=== PATIENT | female | born 1960 | race Caucasian/White ===

== ENCOUNTER 2021-08-27 23:42 | Observation (INO) | payer OTHER ==
[2021-08-28] MEDS ORDERED: KETOROLAC 15 MG/ML 1 ML VIAL IVP STA (00:38)
[2021-08-28] MEDS ORDERED: SODIUM CHLORIDE 0.9% 1,000 ML IV STA (00:38)
[2021-08-28] MEDS ORDERED: ONDANSETRON 4 MG/2 ML VIAL IVP STA (00:38)
--- NOTE | 2021-08-28 00:39 | ED ---
Abdominal Pain HPI - General Chief Complaint: Abdominal Pain Stated Complaint: Abd pain Time Seen by Provider: 08/28/21 00:38 Source: patient, RN notes reviewed, old records reviewed Mode of arrival: ambulatory Limitations: no limitations - History of Present Illness Initial Comments: This is a 60-year-old female presented from [facility] for alcohol abuse patient is about 10 days out of last drink. Patient comes in with epigastric abdominal pain and nausea no fevers no vomiting no diarrhea. Patient has no other complaints no travel history no sick contacts. She states abdominal pain started today at [facility] with no other modifying factors. No prior history of similar pain MD Complaint: abdominal pain -: hour(s) Location: diffuse Radiation: none, epigastric, suprapubic Migration to: no migration, epigastric, suprapubic Severity: moderate Severity scale (1-10): 4 Quality: cramping, aching Consistency: constant Improves With: nothing Worsens With: eating Associated Symptoms: nausea, vomiting Treatments Prior to Arrival: other (none) - Related Data Home Medications Medication Instructions Recorded Confirmed Betamethasone Dipropionate 1 applic TOPICAL DIRECTED 08/28/21 08/28/21 [Diprolene AF 0.05% Cream] Citalopram Hydrobromide [CeleXA] 20 mg PO DAILY 08/28/21 08/28/21 Clobetasol Propionate [Temovate 1 applic TOPICAL DIRECTED 08/28/21 08/28/21 0.05% Oint] Daily-Yahaira 1 tab PO DAILY 08/28/21 08/28/21 Diclofenac Sodium Gel [Voltaren 1 applic TOPICAL QID PRN 08/28/21 08/28/21 Gel] Folic Acid 1 mg PO DAILY 08/28/21 08/28/21 Gabapentin 600 mg PO HS 08/28/21 08/28/21 Naltrexone HCl [Revia] 50 mg PO DAILY 08/28/21 08/28/21 Ondansetron Odt [Zofran Odt] 4 mg PO DAILY PRN 08/28/21 08/28/21 QUEtiapine FUMARATE [SEROquel] 600 mg PO HS 08/28/21 08/28/21 Allergies Allergy/AdvReac Type Severity Reaction Status Date / Time No Known Allergies Allergy Verified 08/28/21 11:54 Review of Systems ROS Statement: Those systems with pertinent positive or pertinent negative responses have been documented in the HPI. ROS Other: All systems not noted in ROS Statement are negative. Past Medical History Past Medical History: Seizure Disorder History of Any Multi-Drug Resistant Organisms: None Reported Past Surgical History: Section Past Psychological History: Anxiety, Bipolar Smoking Status: Never smoker Past Alcohol Use History: Heavy Past Drug Use History: None Reported General Exam Limitations: no limitations General appearance: alert, in no apparent distress, anxious Head exam: Present: atraumatic, normocephalic, normal inspection Eye exam: Present: normal appearance, PERRL, EOMI. Absent: scleral icterus, conjunctival injection, periorbital swelling ENT exam: Present: normal exam, mucous membranes moist Neck exam: Present: normal inspection. Absent: tenderness, meningismus, lymphadenopathy Respiratory exam: Present: normal lung sounds bilaterally. Absent: respiratory distress, wheezes, rales, rhonchi, stridor Cardiovascular Exam: Present: regular rate, normal rhythm, normal heart sounds. Absent: systolic murmur, diastolic murmur, rubs, gallop, clicks GI/Abdominal exam: Present: soft, distended, tenderness, guarding, normal bowel sounds. Absent: rebound, rigid Extremities exam: Present: normal inspection, full ROM, normal capillary refill. Absent: tenderness, pedal edema, joint swelling, calf tenderness Back exam: Present: normal inspection Neurological exam: Present: alert, oriented X3, CN II-XII intact Psychiatric exam: Present: normal affect, normal mood Skin exam: Present: warm, dry, intact, normal color. Absent: rash Course Vital Signs 08/27/21 08/28/21 23:49 04:15 Temperature 98 F 98.4 F Pulse Rate 89 65 Respiratory 20 18 Rate Blood Pressure 108/78 113/59 O2 Sat by Pulse 96 93 L Oximetry - Reevaluation(s) Reevaluation #1: 08/28/21 Medical record is reviewed Reevaluation #2: 08/28/21 Patient is informed of results and symptoms are improved but she still feels something is wrong, we will obtain a computed tomography scan Reevaluation #3: 08/28/21 Patient continues to feel improved but is informed of results questions answered and need for admission, she is agreeable - Consultations Consultation #1: Spoke with admitting physicians who agreed to admit this patient Medical Decision Making - Medical Decision Making 52 female to the emergency department from [facility] coming with non-focal abdominal pain. Lab values were well the patient had ileus versus small bowel structure not CT scans and will be admitted for surgical evaluation and treatment - Lab Data Result diagrams: 08/28/21 01:35 08/28/21 01:35 Lab Results 08/28/21 08/28/21 08/28/21 Range/Units 01:35 01:35 01:35 WBC 6.1 (3.8-10.6) k/uL RBC 4.29 (3.80-5.40) m/uL Hgb 13.8 (11.4-16.0) gm/dL Hct 42.1 (34.0-46.0) % MCV 98.1 (80.0-100.0) fL MCH 32.2 (25.0-35.0) pg MCHC 32.8 (31.0-37.0) g/dL RDW 13.9 (11.5-15.5) % Plt Count 138 L (150-450) k/uL MPV 7.1 Neutrophils % 69 % Lymphocytes % 23 % Monocytes % 4 % Eosinophils % 2 % Basophils % 1 % Neutrophils # 4.2 (1.3-7.7) k/uL Lymphocytes # 1.4 (1.0-4.8) k/uL Monocytes # 0.3 (0-1.0) k/uL Eosinophils # 0.1 (0-0.7) k/uL Basophils # 0.1 (0-0.2) k/uL Sodium 138 (137-145) mmol/L Potassium 4.2 (3.5-5.1) mmol/L Chloride 101 (98-107) mmol/L Carbon Dioxide 33 H (22-30) mmol/L Anion Gap 4 mmol/L BUN 10 (7-17) mg/dL Creatinine 0.63 (0.52-1.04) mg/dL Est GFR (CKD-EPI)AfAm >90 (>60 ml/min/1.73 sqM) Est GFR (CKD-EPI)NonAf >90 (>60 ml/min/1.73 sqM) Glucose 104 H (74-99) mg/dL Calcium 9.4 (8.4-10.2) mg/dL Magnesium 1.8 (1.6-2.3) mg/dL Total Bilirubin 0.8 (0.2-1.3) mg/dL AST 42 H (14-36) U/L ALT 30 (4-34) U/L Alkaline Phosphatase 68 (38-126) U/L Total Protein 7.4 (6.3-8.2) g/dL Albumin 4.3 (3.5-5.0) g/dL Amylase 68 (30-110) U/L Lipase 127 (23-300) U/L Serum Alcohol <10 mg/dL - Radiology Data Radiology results: report reviewed (CT the abdomen and pelvis positive for ileus, small bowel obstruction), image reviewed Disposition Clinical Impression: Abdominal pain, Small bowel obstruction, Ileus Disposition: ADMITTED IP TO THIS HOSP Condition: Fair Is patient prescribed a controlled substance at d/c from ED?: No Time of Disposition: 03:22
[2021-08-28 01:47] LABS: Basophils # (A) 0.1 k/uL (0-0.2); Basophils % (A) 1 %; Eosinophils # (A) 0.1 k/uL (0-0.7); Eosinophils % (A) 2 %; HCT 42.1 % (34.0-46.0); HGB 13.8 gm/dL (11.4-16.0); Lymphocytes # (A) 1.4 k/uL (1.0-4.8); Lymphocytes % (A) 23 %; MCH 32.2 pg (25.0-35.0); MCHC 32.8 g/dL (31.0-37.0); MCV 98.1 fL (80.0-100.0); Mean Platelet Volume 7.1; Monocytes # (A) 0.3 k/uL (0-1.0); Monocytes % (A) 4 %; Neutrophils # (A) 4.2 k/uL (1.3-7.7); Neutrophils % (A) 69 %; Platelet Count 138 k/uL (150-450); RBC 4.29 m/uL (3.80-5.40); RDW 13.9 % (11.5-15.5); WBC 6.1 k/uL (3.8-10.6)
[2021-08-28 02:02] LABS: ALT 30 U/L (4-34); AST 42 U/L (14-36); African American GFR (CKD) >90 (>60 ml/min/1.73 sqM); Albumin 4.3 g/dL (3.5-5.0); Alcohol <10 mg/dL; Alkaline Phosphatase 68 U/L (38-126); Amylase 68 U/L (30-110); Anion Gap 4 mmol/L; Blood Urea Nitrogen 10 mg/dL (7-17); Calcium 9.4 mg/dL (8.4-10.2); Carbon Dioxide 33 mmol/L (22-30); Chloride 101 mmol/L (98-107); Glucose 104 mg/dL (74-99); Lipase 127 U/L (23-300); Non-African American GFR(CKD) >90 (>60 ml/min/1.73 sqM); Potassium 4.2 mmol/L (3.5-5.1); Sodium 138 mmol/L (137-145); Total Bilirubin 0.8 mg/dL (0.2-1.3); Total Protein 7.4 g/dL (6.3-8.2)
[2021-08-28] MEDS ORDERED: MORPHINE SULFATE 4 MG/ML SYRINGE IVP STA (02:43)
--- NOTE | 2021-08-28 03:14 | CT ---
EXAMINATION TYPE: CT abdomen pelvis w con DATE OF EXAM: 08/28/2021 COMPARISON: None HISTORY: Upper abd pain CT DLP: 1544.9 mGycm Automated exposure control for dose reduction was used. CONTRAST: Performed with IV Contrast, patient injected with 100 mL of Isovue 300. Images obtained from the diaphragm to the floor the pelvis with IV contrast. The lung bases show subsegmental atelectasis left lower lobe. No pleural effusion. Heart size is norm al. No pericardial effusion. Liver spleen pancreas gallbladder appear intact. The bile ducts are not dilated. There is no adrenal mass. Kidneys show satisfactory contrast opacification. There is no hydr onephrosis. Ureters are not dilated. Delayed images show normal renal excretion. There is no retroper itoneal adenopathy. Bladder distends smoothly. No inguinal hernia. Uterus is anteverted. No pelvic ma ss. There is tiny amount of low-density free fluid in the pelvis on the right side. There are multiple mildly dilated loops of small bowel throughout the abdomen. Small bowel measures u p to 3.4 cm. Appendix is posterior and appears normal. Small bowel distended up to the ileocecal valv e. The lumbar vertebra appear intact. No compression fracture. Bony pelvis is intact. Hip joints are int act. IMPRESSION: Dilated fluid-filled small bowel throughout the abdomen extending to the distal ileum. This could be small bowel ileus or partial mechanical bowel obstruction. Normal appendix. Minimal free fluid in the pelvis. Mild colonic diverticulosis without diverticulitis.
[2021-08-28] MEDS ORDERED: ONDANSETRON 4 MG/2 ML VIAL IVP PRN (03:21)
[2021-08-28] MEDS ORDERED: NALOXONE 0.4 MG/ML 1 ML VIAL IV PRN (03:21)
[2021-08-28] MEDS: SODIUM CHLORIDE 0.9% 1,000 ML IV SCH ×3 (04:13→20:14)
[2021-08-28] MEDS: PANTOPRAZOLE 40 MG/10 ML VIAL IV SCH (09:06)
--- NOTE | 2021-08-28 11:09 | P.HPIM ---
History of Present Illness This is a pleasant 54 years old female with past medical history of seizure and anxiety disorder Presents because of upper abdominal pain radiating to the right and left groins. Her pain was bad started yesterday about 8/10 in severity felt like sharp and pressure. She has some nausea but no vomiting and actually she had 1 bowel movement this morning. This morning she says her abdominal pain has resolved and she rated as 0/10 Patient was at [facility] for alcohol detox, she's been there for 3 weeks and she has been sober since then. She denies a smoking, or illicit drugs She says last seizure was about 2 years ago and she is not on seizure medication Vitals are stable Labs including CBC, BMP and liver enzymes are unremarkable. Serum alcohol Less than 10 CT of the abdomen and pelvis with contrast: Dilated fluid-filled small bowel throughout the abdomen extending to the distal ileum. This could be small bowel ileus or partial mechanical bowel obstruction. Review of Systems CONSTITUTIONAL: No fever, no malaise, no fatigue. HEENT: No recent visual problems or hearing problems. Denied any sore throat. CARDIOVASCULAR: No orthopnea, PND, no palpitations, no syncope. PULMONARY: No shortness of breath, no cough, no hemoptysis. GASTROINTESTINAL: No diarrhea, no vomiting, NEUROLOGICAL: No headaches, no weakness, no numbness. HEMATOLOGICAL: Denies any bleeding or petechiae. GENITOURINARY: Denies any burning micturition, frequency, or urgency. MUSCULOSKELETAL/RHEUMATOLOGICAL: Denies any joint pain, swelling, or any muscle pain. ENDOCRINE: Denies any polyuria or polydipsia. Past Medical History Past Medical History: Seizure Disorder Additional Past Medical History / Comment(s): Last seizure was around 2017/2017 History of Any Multi-Drug Resistant Organisms: None Reported Past Surgical History: Section Past Psychological History: Anxiety, Bipolar Smoking Status: Never smoker Past Alcohol Use History: Heavy Past Drug Use History: None Reported Medications and Allergies Allergies Allergy/AdvReac Type Severity Reaction Status Date / Time No Known Allergies Allergy Verified 08/27/21 23:53 Physical Exam Vitals: Vital Signs Temp Pulse Pulse Resp BP BP Pulse Ox 08/28/21 04:45 98.2 F 64 18 116/70 95 08/28/21 04:15 98.4 F 65 18 113/59 93 L 08/27/21 23:49 98 F 89 20 108/78 96 Intake and Output 08/27/21 08/28/21 08/28/21 22:59 06:59 14:59 Other: # Voids 1 Weight 98.43 kg GENERAL: The patient is alert and oriented x3, not in any acute distress. Well developed, well nourished. HEENT: Pupils are round and equally reacting to light. EOMI. No scleral icterus. No conjunctival pallor. Normocephalic, atraumatic. No pharyngeal erythema. No thyromegaly. CARDIOVASCULAR: S1 and S2 present. No murmurs, rubs, or gallops. PULMONARY: Chest is clear to auscultation, no wheezing or crackles. ABDOMEN: Soft, nontender, nondistended, normoactive bowel sounds. No palpable organomegaly. MUSCULOSKELETAL: No joint swelling or deformity. EXTREMITIES: No cyanosis, clubbing, or pedal edema. NEUROLOGICAL: Gross neurological examination did not reveal any focal deficits. SKIN: No rashes. No petechiae Results CBC & Chem 7: 08/28/21 01:35 08/28/21 01:35 Labs: Abnormal Lab Results - Last 24 Hours (Table) 08/28/21 08/28/21 Range/Units 01:35 01:35 Plt Count 138 L (150-450) k/uL Carbon Dioxide 33 H (22-30) mmol/L Glucose 104 H (74-99) mg/dL AST 42 H (14-36) U/L Thrombosis Risk Factor Assmnt - Choose All That Apply Any of the Below Risk Factors Present?: Yes Each Factor Represents 1 point: Age 41-60 years, Obesity (BMI >25) Thrombosis Risk Factor Assessment Total Risk Factor Score: 2 Thrombosis Risk Factor Assessment Level: Low Risk Assessment and Plan Assessment: Partial Small bowel obstruction versus ileus recent History of alcohol abuse History of seizure History of anxiety disorder Plan: This is a pleasant 60 years old female who presents withSBO Bowel rest IV fluids Pain management Surgery consult Labs and medication were reviewed.. Continue same treatment. Continue with symptomatic treatment. Resume home medication. Monitor lytes and vitals. DVT and GI prophylaxis. Further recommendations depends on the clinical course of the patient DVT prophylaxis: Subcutaneous heparin GI Prophylaxis: Pepcid
--- NOTE | 2021-08-28 11:37 | P.GSCN ---
History of Present Illness Consult date: 08/28/21 Reason for Consult: Abdominal pain History of present illness: 60-year-old female came to the hospital from [facility]. Began experiencing lower abdominal pain yesterday. This was associated with diarrhea. Patient believes her bowel function has been somewhat less recently as she does take lactulose for her underlying liver disease. Says her pain is much improved today. No nausea or vomiting. CAT scan performed showing mild proximal small bowel dilation ileus versus small bowel obstruction suspected. No sick contacts. No rectal bleeding or melena. Review of Systems The patient denies any acute changes in vision or hearing, no dysphagia or odynophagia, no chest pain or shortness of breath, no dysuria or hematuria, no headache, no runny nose, no rectal bleeding or melena, no unexplained weight loss Past Medical History Past Medical History: Seizure Disorder Additional Past Medical History / Comment(s): Last seizure was around 2016/2017 History of Any Multi-Drug Resistant Organisms: None Reported Past Surgical History: Section Past Psychological History: Anxiety, Bipolar Smoking Status: Never smoker Past Alcohol Use History: Heavy Past Drug Use History: None Reported Medications and Allergies Allergies Allergy/AdvReac Type Severity Reaction Status Date / Time No Known Allergies Allergy Verified 08/27/21 23:53 Surgical - Exam Vital Signs Temp Pulse Resp BP Pulse Ox 98 F 89 20 108/78 96 08/27/21 23:49 08/27/21 23:49 08/27/21 23:49 08/27/21 23:49 08/27/21 23:49 Physical exam: General: Well-developed, well-nourished HEENT: Normocephalic, sclerae nonicteric Abdomen: Nontender, nondistended Extremities: No edema Neuro: Alert and oriented Results - Labs 08/28/21 01:35 08/28/21 01:35 Abnormal Lab Results - Last 24 Hours (Table) 08/28/21 08/28/21 Range/Units 01:35 01:35 Plt Count 138 L (150-450) k/uL Carbon Dioxide 33 H (22-30) mmol/L Glucose 104 H (74-99) mg/dL AST 42 H (14-36) U/L Diabetes panel 08/28/21 Range/Units 01:35 Sodium 138 (137-145) mmol/L Potassium 4.2 (3.5-5.1) mmol/L Chloride 101 (98-107) mmol/L Carbon Dioxide 33 H (22-30) mmol/L BUN 10 (7-17) mg/dL Creatinine 0.63 (0.52-1.04) mg/dL Glucose 104 H (74-99) mg/dL Calcium 9.4 (8.4-10.2) mg/dL AST 42 H (14-36) U/L ALT 30 (4-34) U/L Alkaline Phosphatase 68 (38-126) U/L Total Protein 7.4 (6.3-8.2) g/dL Albumin 4.3 (3.5-5.0) g/dL Calcium panel 08/28/21 Range/Units 01:35 Calcium 9.4 (8.4-10.2) mg/dL Albumin 4.3 (3.5-5.0) g/dL Pituitary panel 08/28/21 Range/Units 01:35 Sodium 138 (137-145) mmol/L Potassium 4.2 (3.5-5.1) mmol/L Chloride 101 (98-107) mmol/L Carbon Dioxide 33 H (22-30) mmol/L BUN 10 (7-17) mg/dL Creatinine 0.63 (0.52-1.04) mg/dL Glucose 104 H (74-99) mg/dL Calcium 9.4 (8.4-10.2) mg/dL Adrenal panel 08/28/21 Range/Units 01:35 Sodium 138 (137-145) mmol/L Potassium 4.2 (3.5-5.1) mmol/L Chloride 101 (98-107) mmol/L Carbon Dioxide 33 H (22-30) mmol/L BUN 10 (7-17) mg/dL Creatinine 0.63 (0.52-1.04) mg/dL Glucose 104 H (74-99) mg/dL Calcium 9.4 (8.4-10.2) mg/dL Total Bilirubin 0.8 (0.2-1.3) mg/dL AST 42 H (14-36) U/L ALT 30 (4-34) U/L Alkaline Phosphatase 68 (38-126) U/L Total Protein 7.4 (6.3-8.2) g/dL Albumin 4.3 (3.5-5.0) g/dL Assessment and Plan (1) Abdominal pain Narrative/Plan: 60-year-old female with abdominal pain. The patient's symptoms have improved. Begin liquid diet. Doubt small bowel obstruction clinically and looking at the CAT scan. We'll follow with you. Current Visit: Yes Status: Acute Code(s): R10.9 - UNSPECIFIED ABDOMINAL PAIN SNOMED Code(s): 73445783
[2021-08-28] MEDS: MORPHINE SULFATE 4 MG/ML SYRINGE IV PRN (19:33)
[2021-08-28] MEDS: FAMOTIDINE 20 MG/2 ML VIAL IV SCH (21:43)
[2021-08-28] MEDS: HEPARIN SODIUM,PORCINE/PF 5,000 UNIT/0.5 ML SYRINGE SQ SCH (21:43)
[2021-08-29] MEDS: SODIUM CHLORIDE 0.9% 1,000 ML IV SCH ×3 (02:46→19:34)
[2021-08-29 08:50] LABS: Basophils # (A) 0.06 X 10*3/uL (0.00-0.10); Basophils % (A) 1.6 %; Eosinophils # (A) 0.06 X 10*3/uL (0.04-0.35); Eosinophils % (A) 1.6 %; HCT 38.1 % (37.2-46.3); HGB 12.3 g/dL (12.0-15.0); Immature Grans, Automated 0.3 %; Lymphocytes # (A) 1.16 X 10*3/uL (0.90-5.00); Lymphocytes % (A) 30.3 %; MCH 31.5 pg (27.0-32.0); MCHC 32.3 g/dL (32.0-37.0); MCV 97.4 fL (80.0-97.0); Mean Platelet Volume 9.9 fL (9.5-12.2); Monocytes # (A) 0.27 X 10*3/uL (0.20-1.00); NRBC Per 100 WBC 0 /100 WBCS (0.0-0.0); Neutrophils # (A) 2.27 X 10*3/uL (1.80-7.70); Neutrophils % (A) 59.2 %; Platelet Count 120 X 10*3/uL (140-440); RBC 3.91 X 10*6/uL (4.10-5.20); RDW 13.7 % (11.5-14.5); WBC 3.83 X 10*3/uL (4.50-10.00)
[2021-08-29] MEDS: HEPARIN SODIUM,PORCINE/PF 5,000 UNIT/0.5 ML SYRINGE SQ SCH ×2 (08:54→21:46)
[2021-08-29] MEDS: PANTOPRAZOLE 40 MG/10 ML VIAL IV SCH (08:54)
[2021-08-29] MEDS: MORPHINE SULFATE 4 MG/ML SYRINGE IV PRN ×3 (08:54→21:46)
[2021-08-29] MEDS: FAMOTIDINE 20 MG/2 ML VIAL IV SCH ×2 (08:54→21:46)
[2021-08-29 08:57] LABS: African American GFR (CKD) 116.4 (60.0-200.0); Albumin/Globulin Ratio 1.54 (1.60-3.17); Anion Gap 10.8 mmol/L (10.00-18.00); Calcium 8.6 mg/dL (8.7-10.3); Carbon Dioxide 28.2 mmol/L (20.0-27.5); Globulin 2.6 g/dL (1.6-3.3); Magnesium 1.8 mg/dL (1.5-2.4); Non-African American GFR(CKD) 100.5 (60.0-200.0); Phosphorus 3.3 mg/dL (2.4-5.1); Total Bilirubin 0.7 mg/dL (0.30-1.20); Total Protein 6.6 g/dL (6.2-8.2)
--- NOTE | 2021-08-29 11:54 | P.PN ---
Subjective Progress Note Date: 08/29/21 CHIEF COMPLAINT: Abdominal pain HISTORY OF PRESENT ILLNESS: Patient reports he had a bowel movement yesterday and a bowel movement this morning. She reports small flatus. She still reports abdominal pain. She reports the pain on the sides of her abdomen bilaterally. She rates her pain currently at 3 out of 10 after receiving pain medication. Prior to pain meds for pain does get up to a 7 out of 10. She reports that she still feels bloated. She denies any nausea or vomiting. Currently tolerating clear liquids. Afebrile. WBC 3.83 Hgb 12.1 sodium 144 potassium 4.0 creatinine 0.6 PHYSICAL EXAM: VITAL SIGNS: Reviewed. GENERAL: Well-developed in no acute distress. HEENT: No sclera icterus. Extraocular movements grossly intact. Moist buccal mucosa. Head is atraumatic, normocephalic. ABDOMEN: Soft. Nondistended. Mildly distended NEUROLOGIC: Alert and oriented. Cranial nerves II through XII grossly intact. ASSESSMENT: 1. Abdominal pain 2. Ileus PLAN: -Further recommendations forthcoming per surgeon -Continue clear liquid diet -Continue IV fluids -Continue supportive care -Encourage patient to ambulate -Continue pain medication as needed Physician Care Director note has been reviewed by physician. Signing provider agrees with the documented findings, assessment, and plan of care. I have personally seen and examined the patient, reviewed the MODULAR SET CREW MEMBER /PAs history, exam and MDM and agree with the assessment and plan as written. Based on total visit time, I have performed more than 50% of the visit. As above: Patient denies nausea or vomiting. She has had flatus and bowel movements. Labs noted. Will increase diet at this point. Reevaluate tomorrow. Objective - Vital Signs Vital signs: Vital Signs Temp 98.4 F 08/29/21 08:00 Pulse 66 08/29/21 08:00 Resp 16 08/29/21 02:00 BP 133/80 08/29/21 08:00 Pulse Ox 96 08/29/21 08:00 FiO2 Intake & Output 08/28/21 08/29/21 08/29/21 18:59 06:59 18:59 Other: Voiding Method Toilet # Voids 5 2 - Labs CBC & Chem 7: 08/29/21 05:46 08/29/21 05:46 Labs: Abnormal Lab Results - Last 24 Hours (Table) 08/29/21 08/29/21 Range/Units 05:46 05:46 WBC 3.83 L (4.50-10.00) X 10*3/uL RBC 3.91 L (4.10-5.20) X 10*6/uL MCV 97.4 H (80.0-97.0) fL Plt Count 120 L (140-440) X 10*3/uL Carbon Dioxide 28.2 H (20.0-27.5) mmol/L BUN 3.0 L (9.0-27.0) mg/dL BUN/Creatinine Ratio 5.00 L (12.00-20.00) Ratio Calcium 8.6 L (8.7-10.3) mg/dL Albumin/Globulin Ratio 1.54 L (1.60-3.17) g/dL
[2021-08-30] MEDS: PANTOPRAZOLE 40 MG/10 ML VIAL IV SCH (07:45)
[2021-08-30] MEDS: MORPHINE SULFATE 4 MG/ML SYRINGE IV PRN (07:45)
[2021-08-30] MEDS: FAMOTIDINE 20 MG/2 ML VIAL IV SCH (07:46)
[2021-08-30] MEDS: HEPARIN SODIUM,PORCINE/PF 5,000 UNIT/0.5 ML SYRINGE SQ SCH (07:46)
[2021-08-30 08:20] VITALS: BP 136/85; PULSE 69; RESP 18; TEMP 98.5
--- NOTE | 2021-08-30 10:29 | P.PN ---
Subjective Progress Note Date: 08/29/21 This is a pleasant 54 years old female with past medical history of seizure and anxiety disorder Presents because of upper abdominal pain radiating to the right and left groins. Her pain was bad started yesterday about 8/10 in severity felt like sharp and pressure. She has some nausea but no vomiting and actually she had 1 bowel movement this morning. This morning she says her abdominal pain has resolved and she rated as 0/10 Patient was at [facility] for alcohol detox, she's been there for 3 weeks and she has been sober since then. She denies a smoking, or illicit drugs She says last seizure was about 2 years ago and she is not on seizure medication Vitals are stable Labs including CBC, BMP and liver enzymes are unremarkable. Serum alcohol Less than 10 CT of the abdomen and pelvis with contrast: Dilated fluid-filled small bowel throughout the abdomen extending to the distal ileum. This could be small bowel ileus or partial mechanical bowel obstruction. 08/29/2021 Patient was admitted to the hospital due to SBO. Patient is currently resting in bed. Awake alert and oriented 3. Denied any complaints of worsening abdominal pain. Did have a small bowel movement. No complaints of chest pain or shortness of breath. No nausea vomiting. No cough or sputum production. Laboratory data short pictures 120 BUN 3.0 and creatinine 0.6. Patient was started on liquid diet and advance as tolerated. General surgery is on board. Current medications reviewed. Objective - Vital Signs Vital signs: Vital Signs Temp 98.8 F 08/29/21 14:00 Pulse 71 08/29/21 14:00 Resp 16 08/29/21 02:00 BP 134/82 08/29/21 14:00 Pulse Ox 96 08/29/21 14:00 FiO2 Intake & Output 08/28/21 08/29/21 08/29/21 18:59 06:59 18:59 Other: Voiding Method Toilet # Voids 5 2 - Exam GENERAL: The patient is alert and oriented x3, not in any acute distress. Well developed, well nourished. HEENT: Pupils are round and equally reacting to light. EOMI. No scleral icterus. No conjunctival pallor. Normocephalic, atraumatic. No pharyngeal erythema. No thyromegaly. CARDIOVASCULAR: S1 and S2 present. No murmurs, rubs, or gallops. PULMONARY: Chest is clear to auscultation, no wheezing or crackles. ABDOMEN: Soft, nontender, nondistended, bowel sounds present. No palpable organomegaly. MUSCULOSKELETAL: No joint swelling or deformity. EXTREMITIES: No cyanosis, clubbing, or pedal edema. NEUROLOGICAL: Gross neurological examination did not reveal any focal deficits. SKIN: No rashes. No petechiae - Labs CBC & Chem 7: 08/29/21 05:46 08/29/21 05:46 Labs: Abnormal Lab Results - Last 24 Hours (Table) 08/29/21 08/29/21 Range/Units 05:46 05:46 WBC 3.83 L (4.50-10.00) X 10*3/uL RBC 3.91 L (4.10-5.20) X 10*6/uL MCV 97.4 H (80.0-97.0) fL Plt Count 120 L (140-440) X 10*3/uL Carbon Dioxide 28.2 H (20.0-27.5) mmol/L BUN 3.0 L (9.0-27.0) mg/dL BUN/Creatinine Ratio 5.00 L (12.00-20.00) Ratio Calcium 8.6 L (8.7-10.3) mg/dL Albumin/Globulin Ratio 1.54 L (1.60-3.17) g/dL Assessment and Plan Assessment: Partial Small bowel obstruction versus ileus recent History of alcohol abuse History of seizure History of anxiety disorder Plan: This is a pleasant 60 years old female who presents withSBO Patient is being continued onIV hydration. Start on clear liquid diet. Pain management Surgery is following. Labs and medication were reviewed.. Monitor lytes and vitals. DVT and GI prophylaxis. DVT prophylaxis: Subcutaneous heparin GI Prophylaxis: Pepcid
--- NOTE | 2021-08-30 11:58 | P.PN ---
Subjective Progress Note Date: 08/30/21 CHIEF COMPLAINT: Abdominal pain HISTORY OF PRESENT ILLNESS: Patient reports her abdominal pain has resolved. She's complaining more of back pain. She is having flatus. Denies any nausea or vomiting. Her last bowel movement was yesterday. And she reports that her back pain feels like her chronic back pain. She is afebrile. She has been up and ambulating. She's currently on a full liquid diet. PHYSICAL EXAM: VITAL SIGNS: Reviewed. GENERAL: Well-developed in no acute distress. HEENT: No sclera icterus. Extraocular movements grossly intact. Moist buccal mucosa. Head is atraumatic, normocephalic. ABDOMEN: Soft. Nondistended. Nondistended NEUROLOGIC: Alert and oriented. Cranial nerves II through XII grossly intact. ASSESSMENT: 1. Abdominal pain 2. Ileus improved PLAN: -Advance diet to low fiber. If patient tolerating diet she can be discharged from surgical standpoint. Physician Repairer Cylinder Heads note has been reviewed by physician. Signing provider agrees with the documented findings, assessment, and plan of care. I have personally seen and examined the patient, reviewed the IGNITER ASSEMBLER /PAs history, exam and MDM and agree with the assessment and plan as written. Based on total visit time, I have performed more than 50% of the visit. As above: Patient doing well today. Tolerating diet. No pain. May discharge. Return if pain recurs. Objective - Vital Signs Vital signs: Vital Signs Temp 98.5 F 08/30/21 08:00 Pulse 69 08/30/21 08:00 Resp 18 08/30/21 08:00 BP 136/85 08/30/21 08:00 Pulse Ox 94 L 08/30/21 08:00 FiO2 Intake & Output 08/29/21 08/30/21 08/30/21 18:59 06:59 18:59 Other: Voiding Method Toilet Toilet # Voids 4 3 # Bowel Movements 1 - Labs CBC & Chem 7: 08/30/21 11:36 08/30/21 11:36
[2021-08-30 12:14] LABS: African American GFR (CKD) >90 (>60 ml/min/1.73 sqM); Anion Gap 9 mmol/L; Blood Urea Nitrogen <2 mg/dL (7-17); Calcium 8.9 mg/dL (8.4-10.2); Carbon Dioxide 28 mmol/L (22-30); Chloride 102 mmol/L (98-107); Glucose 97 mg/dL (74-99); Non-African American GFR(CKD) >90 (>60 ml/min/1.73 sqM); Potassium 4.3 mmol/L (3.5-5.1); Sodium 139 mmol/L (137-145)
[2021-08-30 12:15] LABS: Basophils # (A) 0.1 k/uL (0-0.2); Basophils % (A) 1 %; Eosinophils # (A) 0.1 k/uL (0-0.7); Eosinophils % (A) 1 %; HCT 41.1 % (34.0-46.0); HGB 13.8 gm/dL (11.4-16.0); Lymphocytes # (A) 1.3 k/uL (1.0-4.8); Lymphocytes % (A) 22 %; MCH 32.6 pg (25.0-35.0); MCHC 33.7 g/dL (31.0-37.0); MCV 96.8 fL (80.0-100.0); Mean Platelet Volume 7.4; Monocytes # (A) 0.5 k/uL (0-1.0); Monocytes % (A) 9 %; Neutrophils # (A) 3.9 k/uL (1.3-7.7); Neutrophils % (A) 66 %; Platelet Count 181 k/uL (150-450); RBC 4.24 m/uL (3.80-5.40); RDW 14.1 % (11.5-15.5); WBC 5.9 k/uL (3.8-10.6)
[2021-08-30 12:53] LABS: RBC Morphology Normal
[2021-08-30] MEDS: SODIUM CHLORIDE 0.9% 1,000 ML IV SCH (13:01)
--- NOTE | 2021-09-07 14:03 | P.DS ---
Providers Date of admission: 08/28/21 03:22 Expected date of discharge: 08/30/21 Attending physician: Les Swartz Consults: 08/28/21 03:22 Consult Physician Routine Consulting Provider: Andres Dempsey Consult Reason/Comments: sbo Do you want consulting provider notified?: Yes Primary care physician: Javier José MD Hospital Course: Discharge diagnosis Partial Small bowel obstruction versus ileus. Resolved. recent History of alcohol abuse History of seizure History of anxiety disorder Hospital course This is a pleasant 54 years old female with past medical history of seizure and anxiety disorder Presents because of upper abdominal pain radiating to the right and left groins. Her pain was bad started yesterday about 8/10 in severity felt like sharp and pressure. She has some nausea but no vomiting and actually she had 1 bowel movement this morning. This morning she says her abdominal pain has resolved and she rated as 0/10 Patient was at [facility] for alcohol detox, she's been there for 3 weeks and she has been sober since then. She denies a smoking, or illicit drugs She says last seizure was about 2 years ago and she is not on seizure medication Vitals are stable Labs including CBC, BMP and liver enzymes are unremarkable. Serum alcohol Less than 10 CT of the abdomen and pelvis with contrast: Dilated fluid-filled small bowel throughout the abdomen extending to the distal ileum. This could be small bowel ileus or partial mechanical bowel obstruction. 08/29/2021 Patient was admitted to the hospital due to SBO. Patient is currently resting in bed. Awake alert and oriented 3. Denied any complaints of worsening abdominal pain. Did have a small bowel movement. No complaints of chest pain or shortness of breath. No nausea vomiting. No cough or sputum production. Laboratory data short pictures 120 BUN 3.0 and creatinine 0.6. Patient was started on liquid diet and advance as tolerated. General surgery is on board. 08/30/2021 Patient is awake alert and oriented. Abdominal pain is almost resolved. Complains of lower back pain. No numbness or tingling sensation. Otherwise patient is able to pass flatus and did have a large bore needle yesterday. No recent nausea or vomiting. Patient is tolerating oral diet. Patient has been ambulating. Platelets and surgery standpoint and the patient is being discharged today. - Exam GENERAL: The patient is alert and oriented x3, not in any acute distress. Well developed, well nourished. HEENT: Pupils are round and equally reacting to light. EOMI. No scleral icterus. No conjunctival pallor. Normocephalic, atraumatic. No pharyngeal erythema. No thyromegaly. CARDIOVASCULAR: S1 and S2 present. No murmurs, rubs, or gallops. PULMONARY: Chest is clear to auscultation, no wheezing or crackles. ABDOMEN: Soft, nontender, nondistended, bowel sounds present. No palpable organomegaly. MUSCULOSKELETAL: No joint swelling or deformity. EXTREMITIES: No cyanosis, clubbing, or pedal edema. NEUROLOGICAL: Gross neurological examination did not reveal any focal deficits. SKIN: No rashes. No petechiae - Vital Signs Vital signs: Vital Signs Temp 98.5 F 08/30/21 08:00 Pulse 69 08/30/21 08:00 Resp 18 08/30/21 08:00 BP 136/85 08/30/21 08:00 Pulse Ox 94 L 08/30/21 08:00 FiO2 Intake & Output 08/29/21 08/30/21 08/30/21 18:59 06:59 18:59 Other: Voiding Method Toilet Toilet # Voids 4 3 # Bowel Movements 1 Patient Condition at Discharge: Fair Plan - Discharge Summary Discharge Rx Participant: Yes New Discharge Prescriptions: Continue Ondansetron Odt [Zofran ODT] 4 mg PO DAILY PRN PRN Reason: Nausea Naltrexone HCl [Revia] 50 mg PO DAILY Folic Acid 1 mg PO DAILY Betamethasone Dipropionate [Diprolene AF 0.05% Cream] 1 applic TOPICAL DIRECTED Daily-Yahaira 1 tab PO DAILY QUEtiapine FUMARATE [SEROquel] 600 mg PO HS Gabapentin 600 mg PO HS Diclofenac Sodium Gel [Voltaren Gel] 1 applic TOPICAL QID PRN PRN Reason: BACK PAIN Citalopram Hydrobromide [CeleXA] 20 mg PO DAILY Clobetasol Propionate [Temovate 0.05% Oint] 1 applic TOPICAL DIRECTED Discharge Medication List Betamethasone Dipropionate [Diprolene AF 0.05% Cream] 1 applic TOPICAL DIRECTED 08/28/21 [History] Citalopram Hydrobromide [CeleXA] 20 mg PO DAILY 08/28/21 [History] Clobetasol Propionate [Temovate 0.05% Oint] 1 applic TOPICAL DIRECTED 08/28/21 [History] Daily-Yahaira 1 tab PO DAILY 08/28/21 [History] Diclofenac Sodium Gel [Voltaren Gel] 1 applic TOPICAL QID PRN 08/28/21 [History] Folic Acid 1 mg PO DAILY 08/28/21 [History] Gabapentin 600 mg PO HS 08/28/21 [History] Naltrexone HCl [Revia] 50 mg PO DAILY 08/28/21 [History] Ondansetron Odt [Zofran ODT] 4 mg PO DAILY PRN 08/28/21 [History] QUEtiapine FUMARATE [SEROquel] 600 mg PO HS 08/28/21 [History] Follow up Appointment(s)/Referral(s): Pratima Simmons MD [REFERRING] - 1 Week Patient Instructions/Handouts: Abdominal Pain (ED) Activity/Diet/Wound Care/Special Instructions: Call [facility] once discharged to pick patient up - [phone]. Discharge Disposition: DC/TRNS TO INPATIENT REHAB FAC
== END 2021-08-30 16:32 ==
LOC: EC 23:42 → INTOOBSV 08-28 03:22 → 4SSUR 08-28 03:22 → UNDODISIN 08-30 16:32
PROVIDERS: ADMIT Hospitalist; ATTEND Hospitalist
DX: R10.10 Upper abdominal pain, unspecified (principal); R11.0 Nausea; R14.0 Abdominal distension (gaseous); R10.30 Lower abdominal pain, unspecified; R10.13 Epigastric pain; G89.29 Other chronic pain; M54.50 Low back pain, unspecified; F10.10 Alcohol abuse, uncomplicated; F31.9 Bipolar disorder, unspecified; F41.9 Anxiety disorder, unspecified; G40.909 Epilepsy, unspecified, not intractable, without status epilepticus; K76.9 Liver disease, unspecified; E66.9 Obesity, unspecified; Z68.35 Body mass index [BMI] 35.0-35.9, adult; Z98.890 Other specified postprocedural states; Z79.899 Other long term (current) drug therapy; Z71.9 Counseling, unspecified; Z71.3 Dietary counseling and surveillance
CPT/HCPCS: 96376 ×3; 96372 ×3; 96375 ×2; 96374; 99285; 36415; 80053 ×2; 80048; 82150; 83690; 83735 ×2; 84100; 85025 ×3; 74177; G0378 ×3; G0480; J2270 ×3; J2405; J1885; C9113 ×3; J1644 ×3; 80320